=== PATIENT | female | born 2005 ===

== ENCOUNTER → 2025-09-08 | Outpatient (REF) | payer OTHER ==
[2025-09-08 13:16] LABS: ALT/SGPT 30 U/L (7.0-40); AST/SGOT 17 U/L (<34); CALCIUM LEVEL 8.7 MG/DL (8.5-10.1); CARBON DIOXIDE LEVEL 26 MMOL/L (20-31); CHLORIDE LEVEL 108 MMOL/L (98-107); CHOLESTEROL LEVEL 158 MG/DL (<200); CHOLESTEROL RISK RATIO 3.64 (<5); CREATININE FOR GFR 0.60 MG/DL (0.55-1.30); GLOMERULAR FILTRATION RATE > 90.0 (>60); LDL CHOLESTEROL 96.2 MG/DL (<100); NON-HDL-C 114.6 MG/DL; POTASSIUM SERUM 4.5 MMOL/L (3.5-5.1); SODIUM LEVEL 142 MMOL/L (136-145); TRIGLYCERIDES LEVEL 92 MG/DL (<150)
== END ==
LOC: M LAB REF 12:14
PROVIDERS: ATTEND Student in an Organized Health Care Education/Training Program
DX: R63.5 Abnormal weight gain (principal)